=== PATIENT | male | born 1970 ===

== ENCOUNTER 2025-02-19 12:37 | Outpatient (RCR) | payer BC, SELFPAY | END 2025-02-19 23:59 | disposition home or self-care (01) | LOC: RPT 12:37 | PROVIDERS: ATTENDING PHYSICIAN Internal Medicine | DX: M62.838 Other muscle spasm (principal); M47.814 Spondylosis without myelopathy or radiculopathy, thoracic region; Z73.6 Limitation of activities due to disability; M54.50 Low back pain, unspecified; M62.81 Muscle weakness (generalized); Z98.1 Arthrodesis status | CPT/HCPCS: 97110; 97112; 97163 ==

== ENCOUNTER 2025-04-06 13:54 | Emergency (ER) | payer BC, SELFPAY ==
[2025-04-06 14:06] VITALS: BP 113/92
[2025-04-06 15:12] LABS: Hematocrit 45.4 % (39.0-52.0); Hemoglobin 15.8 g/dL (13.0-18.0); Mean Corp Hgb Conc. 34.8 g/dL (33.0-37.0); Mean Corpuscular Volume 79.1 fL (80.0-94.0); Nucleated Red Blood Cells % 0 % (-); Platelet Count 162 10^3/uL (130-400); Red Cell Dist. Width 13.0 % (11.5-14.5)
[2025-04-06 15:29] LABS: ALT (SGPT) 17 U/L (0-50); AST (SGOT) 22 U/L (17-59); Albumin 4.8 g/dl (3.5-5.0); Alkaline Phosphatase 95 U/L (38-126); Blood Urea Nitrogen 15 mg/dl (9-20); Calcium 8.7 mg/dl (8.4-10.2); Carbon Dioxide 25 mmol/L (22-30); Chloride 104 mmol/L (98-107); Glucose 87 mg/dl (70-99); Potassium 4.2 mmol/L (3.5-5.1); Sodium 136 mmol/L (135-145); Total Protein 7.5 g/dl (6.3-8.2); eGFR > 60.00
--- NOTE | 2025-04-06 17:18 | ED.GENMED ---
History of Present Illness
General
Chief Complaint: Dizziness
Time Seen by Provider: 04/06/25 17:18
History of Present Illness
History of Present Illness:
FOCUSED PAST MEDICAL HISTORY
- Anxiety depression
REVIEW OF OLD RECORDS
- I reviewed records, the patient had a PT evaluation 1 month ago
Note:
CHIEF COMPLAINT(S)
- Light-headedness and dizziness for three days.
HISTORY OF PRESENT ILLNESS
The patient is a 55-year-old male who presented with light-headedness and dizziness that started approximately three days ago. The patient described these sensations as a 'vertigo kind of feeling,' characterized by a sensation of movement even with
eyes closed. He reported that these symptoms intensified over the last day. The patient recently stopped taking a medication called Austedo for tardive dyskinesia about ten days ago after consulting with his psychiatrist, and he is undergoing
S-ketamine treatment for treatment-resistant depression. He also started a new medication regimen involving buprenorphine and another medication approximately three to four weeks ago, which seemed to exacerbate his dizziness and confusion. Upon
increasing the dosage to twice daily, his symptoms worsened, prompting reduction back to the initial dosing.
The patient previously underwent a computed tomography (CT) scan which showed no abnormalities, and blood work was also reported as normal. During the encounter, a Sukumar-Hallpike maneuver was performed, and the patient experienced worsened symptoms
consistent with positional vertigo. The provider discussed the Su maneuver as a potential at-home remedy and suggested referral to a physical therapist. The patient mentioned having experienced similar symptoms ten years ago, resulting in a
near-fall incident.
PAST MEDICAL AND SURGICAL HISTORY
- Treatment-resistant depression.
- Past episode of vertigo with near-fall incident ten years ago.
ADDITIONAL HISTORY OBTAINED FROM SOURCES OTHER THAN THE PATIENT
Not applicable in this transcript.
MEDICATIONS
- S-ketamine for treatment-resistant depression.
- Recently reduced dosage of a new pain management regimen including buprenorphine.
REVIEW OF SYSTEMS
- Neurological: Light-headedness, dizziness, sensation of movement consistent with vertigo.
PHYSICAL EXAM
General: Alert, no acute distress.
Skin: Warm, dry.
Head: Normocephalic, atraumatic.
Neck: Supple, trachea midline.
Eye Ears, nose, mouth, and throat: Oral mucosa moist.
Cardiovascular: Normal peripheral perfusion, No edema.
Respiratory: Respirations are non-labored.
Gastrointestinal: Abdomen nondistended
Back: Normal range of motion, Normal alignment.
Musculoskeletal: Normal ROM, normal strength.
Neurological: Alert and oriented to person, place, time, and situation; no focal neurological deficit observed. Presence of nystagmus noted during the Linn-Hallpike maneuver. Normal finger-nose testing.
Psychiatric: Somewhat of a flat depressed affect
PROBLEM LIST
- Acute: Light-headedness, dizziness, vertigo.
- Chronic: Treatment-resistant depression.
PLAN
- Educated the patient on performing the Su maneuver at home to alleviate symptoms of vertigo.
- Provided a prescription and contact information for physical therapy for further management of vertigo.
- Reassurance given regarding non-detection of any mass or tumor.
DIFFERENTIAL DIAGNOSIS
The Differential Diagnosis includes, in no particular order and is not limited to:
- Benign Paroxysmal Positional Vertigo (BPPV)
- Vestibular neuronitis
- Labyrinthitis
- Menieres disease
- Medication-induced vertigo
- Hypotension
- Cardiac arrhythmia
- Anemia
- Inner ear infection
- Central nervous system lesion (e.g., stroke, tumor)
Disposition:
SUMMARY OF ENCOUNTER
The patient, a 55-year-old male, presented to the emergency department with light-headedness and dizziness for three days, described as a vertigo sensation. Symptoms coincided with medication changes for his treatment-resistant depression, including
cessation of 'Osteo' and initiation of a new regimen with buprenorphine. A Linn-Hallpike maneuver resulted in worsened vertigo symptoms, indicating positional vertigo. A past episode of similar symptoms was noted. The patient was managed with
education on the Su maneuver, reassurance about the non-detection of a mass or tumor, and a prescription for physical therapy.
PLAN
Educated the patient to perform the Su maneuver at home. Provided contact information for physical therapy referral regarding vertigo management. Reassurance was given concerning the non-detection of any concerning findings in imaging.
INDEPENDENT REVIEW OF LABS AND INTERPRETATION OF TESTS
- My independent review of prior blood work is normal.
- My independent CT head interpretation is normal, which does not reveal any mass or intracranial lesions.
PATIENT EDUCATION AND COUNSELING
Educated the patient regarding the Su maneuvers role in treating positional vertigo. Discussed the benign nature of benign paroxysmal positional vertigo (BPPV) and provided reassurance. Explained the referral to physical therapy as a step for
further symptom management.
FOLLOW-UP INSTRUCTIONS
Patient advised to schedule a follow-up visit with a physical therapist for further management of vertigo and to follow up with the psychiatrist or primary care provider for ongoing medication management.
MEDICATION RECONCILIATION
The patient was counseled to revise his medication regimen, particularly regarding the dosing of buprenorphine. No new emergency department-administered medications were documented.
MEDICAL DECISION MAKING
- Number and Complexity of Problems Addressed: Chronic conditions affecting care include treatment-resistant depression and previous episodes of vertigo. The differential diagnosis includes benign paroxysmal positional vertigo, vestibular
neuronitis, labyrinthitis, M�ni�res disease, medication-induced vertigo, hypotension, cardiac arrhythmia, anemia, inner ear infection, and central nervous system lesions.
- Data:
Category 1:
- Non-emergency department records, external records reviewed include medication regimen records.
- My independent interpretation of CT head is corroborated with normal findings.
- Risk:
Prescription drug management discussed with adjustments recommended to current medications.
DIAGNOSIS
- Benign Paroxysmal Positional Vertigo (BPPV) - ICD-10 H81.1
RADIOLOGY
- CAT scan of the brain shows no acute abnormality
LABS
- CBC and chemistries unremarkable
UPDATE
- Gave prescription for vestibular physical therapy
- Has positive Sukumar-Hallpike maneuver with a normal neurologic examination and stroke scale 0
Phy Exam
Physical Exam
Physical Exam:
See HPI
Course
Orders/Labs/Results
Orders:
Orders
04/06/25 13:55
EKG [Electrocardiogram (*1)] Urgent
Reason for Study: Vertigo / Dizzy
EKG- Treatment ONCE
04/06/25 14:[address] [CT Head W/o Iv Contrast] Urgent
Comment:
Reason For Exam: dizziness
04/06/25 14:56
Complete Blood Count/With Diff Urgent
Comprehensive Metabolic Panel Urgent
Abnormal Lab Results
04/06/25
14:56
MCV 79.1 L fL
(80.0-94.0)
Absolute Lymphs (auto) 1.0 L 10^3/uL
(1.2-3.4)
Neutrophils % 75.4 H %
(42.2-75.2)
Lymphocytes % 17.5 L %
(20.5-51.1)
04/06/25 14:56
04/06/25 14:56
Vital Signs
Initial and Last Documented VS:
Initial Vital Signs
Temp Pulse Resp BP Pulse Ox
36.3 C 75 20 113/92 97
04/06/25 14:06 04/06/25 14:06 04/06/25 14:06 04/06/25 14:06 04/06/25 14:06
Last Documented Vital Signs
Temp Pulse Resp BP Pulse Ox
36.3 C 75 20 113/92 97
04/06/25 14:06 04/06/25 14:06 04/06/25 14:06 04/06/25 14:06 04/06/25 17:20
*Pulse Oximetry
SaO2: 97
Oxygen Mode of Delivery: Room air
Patient hypoxic: no
*Critical Care Note
Total Time (30-74mins, 75-104mins- exclusive of procedures): Not Applicable
ED Attending Note
-
Portions of this chart may have been created with voice recognition software.� Occasional wrong word or��sound alike� substitutions may have occurred due to the inherent limitations of voice recognition software.
Discharge Plan
Departure
Patient Disposition: Home (Routine Discharge)
Date of Disposition: 04/06/25
Time of Disposition: 17:35
Patient with high blood pressure during this ER visit?: Yes
Discharge Problem:
Benign paroxysmal positional vertigo
Instructions: Vertigo (a Type of Dizziness) (DC), BLOOD PRESSURE
Activity Restrictions/Additional Instructions:
I recommend that you call physical therapy for vestibular physical therapy treatment. Call [phone]. I have given you a prescription. You could consider trying the Su maneuver. You had a positive Sukumar-Hallpike maneuver today which is
consistent with benign paroxysmal positional vertigo. Valium may or may not help this much but typically does not really do that much. Symptoms usually last for about 3 to 4 weeks. Return if worse or other concerns.
Interventions
Interventions:
*Risk Screen - Suicide (C-SSRS) Last Done: 04/06/25 14:06
Discharge Date and Time
Print Language: NEPALI
[2025-04-06 17:48] VITALS: BP 116/70
== END 2025-04-06 17:55 | disposition home or self-care (01) ==
LOC: EMR 13:54
PROVIDERS: Emergency Medicine; EMERGENCY PHYSICIAN Emergency Medicine; FAMILY PHYSICIAN Internal Medicine
DX: H81.10 Benign paroxysmal vertigo, unspecified ear (principal); R03.0 Elevated blood-pressure reading, without diagnosis of hypertension; F33.9 Major depressive disorder, recurrent, unspecified; F41.8 Other specified anxiety disorders
CPT/HCPCS: 99284; 70450; 80053; 85025; 93005